=== PATIENT | male | born 1990 | race African-American/Black ===

== ENCOUNTER → 2020-11-22 | Outpatient (REF) | payer OTHER | LOC: M LAB REF 14:35 | PROVIDERS: ATTEND Dermatology | DX: D48.9 Neoplasm of uncertain behavior, unspecified (principal) ==

== ENCOUNTER → 2022-04-27 | Outpatient (REF) | payer OTHER | LOC: M LAB REF 23:33 | PROVIDERS: ATTEND Physician Assistant | DX: R50.9 Fever, unspecified (principal) ==

== ENCOUNTER → 2025-02-02 | Outpatient (CLI) | payer OTHER ==
[2025-02-02 15:14] LABS: PLATELET COUNT, AUTOMATED 268 10^3/uL (150-450)
[2025-02-02 15:30] LABS: INR 0.84; PARTIAL THROMBOPLASTIN TIME 27.9 SECONDS (24.8-34.2); PROTHROMBIN TIME 11.8 SECONDS (12.5-14.5)
== END ==
LOC: M PLALAB 13:49
PROVIDERS: ATTEND Orthopaedic Surgery
DX: Z01.818 Encounter for other preprocedural examination (principal)